=== PATIENT | female | born 1995 | race Caucasian/White ===

== ENCOUNTER 2019-03-31 15:18 | Inpatient (IN) ==
[2019-03-31] MEDS ORDERED: ACETAMINOPHEN 325 MG TABLET PO PRN (16:43)
[2019-03-31] MEDS ORDERED: ONDANSETRON 4 MG/2 ML VIAL IV PRN (16:43)
[2019-03-31] MEDS: chlordiazePOXIDE 25 MG CAPSULE PO SCH ×2 (17:12→22:41)
[2019-03-31] MEDS: LORazepam 2 MG/1 ML VIAL IV PRN (17:33)
[2019-03-31] MEDS ORDERED: THIAMINE INJ 100 MG, FOLIC ACID INJ 1 MG, MULTIVITAMIN INJ 10 ML in SODIUM CHLORIDE 0.9... IV ONE (18:00)
[2019-03-31] MEDS: METHOCARBAMOL 750 MG TABLET PO SCH (21:20)
[2019-03-31] MEDS: DOXYCYCLINE HYCLATE 100 MG CAPSULE PO SCH (22:42)
[2019-04-01] MEDS: chlordiazePOXIDE 25 MG CAPSULE PO SCH ×3 (04:20→16:05)
[2019-04-01] MEDS ORDERED: DEXTROAMPHETAMINE AMPHETAMINE 30 MG PO SCH (09:00)
[2019-04-01] MEDS: PANTOPRAZOLE 40 MG TABLET PO SCH (09:32)
[2019-04-01] MEDS: METHOCARBAMOL 750 MG TABLET PO SCH ×3 (09:32→20:50)
[2019-04-01] MEDS ORDERED: NICOTINE 21 MG/24 HR PATCH TRANSDERM PRN (11:17)
[2019-04-01] MEDS: LORazepam 2 MG/1 ML VIAL IV PRN ×2 (14:44→20:52)
[2019-04-01] MEDS: DOXYCYCLINE HYCLATE 100 MG CAPSULE PO SCH (20:50)
[2019-04-02] MEDS: chlordiazePOXIDE 25 MG CAPSULE PO SCH ×4 (01:29→20:33)
[2019-04-02] MEDS: METHOCARBAMOL 750 MG TABLET PO SCH ×3 (09:48→20:33)
[2019-04-02] MEDS: PANTOPRAZOLE 40 MG TABLET PO SCH (09:48)
[2019-04-02] MEDS ORDERED: POLYETHYLENE GLYCOL POWDER 17 GM PACK PO PRN (10:28)
[2019-04-02 14:02] LABS: Apearance,Urine CLEAR (Clear); Bacteria,Urine Occasional /HPF (Few); Bilirubin,Urine Negative (Negative); Blood, Urine Negative (Negative); Glucose,Urine (UA) Negative (Negative); Ketones,Urine Negative (Negative); Mucus,Urine Occasional /LPF (Occasional); Nitrite,Urine Negative (Negative); Protein,Urine Negative; RBC,Urine 2 /HPF (0-4); Squamous Epithelial Cell,Urine Occasional /HPF (0-10); Urine Color Yellow (Yellow); Urine Specific Gravity 1.008 (1.001-1.035); Urine Urobilinogen < 2.0 EU/DL (0.2-1.0); WBC,Urine 1 /HPF (0-6)
[2019-04-02] MEDS: DOXYCYCLINE HYCLATE 100 MG CAPSULE PO SCH (20:33)
[2019-04-02] MEDS: LORazepam 2 MG/1 ML VIAL IV PRN (22:42)
[2019-04-03 07:55] VITALS: BP 83/45
[2019-04-03] MEDS: PANTOPRAZOLE 40 MG TABLET PO SCH (08:48)
[2019-04-03] MEDS: chlordiazePOXIDE 25 MG CAPSULE PO SCH (08:48)
[2019-04-03] MEDS: METHOCARBAMOL 750 MG TABLET PO SCH (08:48)
== END 2019-04-03 10:39 | disposition home or self-care (01) | DRG 897 ==
LOC: N.4E 16:03
PROVIDERS: ADMIT Hospitalist; ATTEND Hospitalist